=== PATIENT | female | born 1975 | race Caucasian/White ===

== ENCOUNTER 2017-02-03 19:53 | Emergency (ER) | payer OTHER ==
[~2017-02-03] VITALS: Ht 160 cm; Wt 69.4 kg
[2017-02-03] MEDS ORDERED: PERCOCET 5/31 TABLET PO (20:53)
[2017-02-03] MEDS ORDERED: VALIUM5 MG PO (20:53)
[2017-02-03 21:12] VITALS: BP 146/93
== END 2017-02-03 21:17 | disposition home or self-care (01) ==
LOC: EXP 19:53 → EME 19:53 → EXP 21:17
DX: M54.12 Radiculopathy, cervical region (principal); M62.838 Other muscle spasm; F17.200 Nicotine dependence, unspecified, uncomplicated
CPT/HCPCS: 99281; 99283; J8540